=== PATIENT | female | born 1990 | race Caucasian/White ===

== ENCOUNTER 2017-11-08 18:34 | Emergency (ER) | payer OTHER ==
[~2017-11-08] VITALS: Ht 157.5 cm; Wt 100.0 kg
[~2017-11-08 18:34] MED LIST: ACET325 PO; CLON1 PO; DEPO150I IM; FLUP10 PO; IBUP800; LORA-474 PO
[2017-11-08 18:38] VITALS: BP 157/102; PULSE 117; RESP 18; TEMP 97.9; O2SAT 98
--- NOTE | 2017-11-08 19:28 | PD ---
HPI Chief Complaint: Allergic/Adverse Reaction Time Seen by Provider: 18:55 Travel History International Travel<30 days: No Contact w/Intl Traveler<30days: No Traveled to known affect area: No History of Present Illness HPI 27-year-old female that presents to the ED for evaluation of possible a reaction. Per patient she's been having "shakes", tremors and sensation of not feeling right since starting metronidazole on Thursday. Per patient she went to see her SENIOR CONSTRUCTION ESTIMATOR who prescribe her metronidazole for a vaginal disease. Per patient she's not sure what she was diagnosed with. She does have a history of schizophrenia and takes Depakote and she wasn't sure if the Depakote might be causing it as well. Per patient another one of her medications has been changed and switched to a lower dose at she denies any other issues with it. She denies any chest pain or shortness of breath. No headache. She feels dizzy and somewhat lightheaded. Has no allergies to medication. No chest pain or shortness of breath. No urinary or bowel movement issues. Hasn't seen her psychiatrist. Denies any other medical issues. Hasn't taken anything for this. No new medication changes per patient. PFSH Past Medical History ADHD: Yes Bipolar Disorder: Yes Weight (Kg): 2 Anxiety: Yes Depression: Yes Cancer: No Cardiovascular Problems: No Diabetes: No Diminished Hearing: No Endocrine: No Genitourinary: No Immune Disorder: No Musculoskeletal: No Neurologic: No Psychiatric: Yes Reproductive: No Respiratory: No Immunizations Current: Yes Migraines: Yes Schizophrenia: Yes Seizures: Yes (NO DEFINITIVE DIAGNOSIS, PER PT.) Thyroid Disease: No Ulcer: No ?: Not LMP: OCT 2017 Menopausal: No : 0 Para: 0 Past Surgical History Appendectomy: No Section: Yes Cholecystectomy: No Gynecologic Surgery: Yes ( 10/05/12) Other Surgery: Yes Social History Alcohol Use: Yes (reports that she quit 03/02) Tobacco Use: Yes (used to smoke a pack a day, reportedly stopped on 03/02) Substance Use: Yes (QUIT WHEN FOUND OUT SHE WAS ) Allergies-Medications (Allergen,Severity, Reaction): Coded Allergies: No Known Allergies (Verified , 07/08/12) Reported Meds & Prescriptions Reported Meds & Active Scripts Active Reported Clonazepam 1 Mg Tab 1 Mg PO BID Metronidazole 500 Mg Tab 500 Mg PO BID Depakote DR (Divalproex Sodium) 125 Mg Tabdr 125 Mg PO BID Review of Systems Except as stated in HPI: all other systems reviewed are Neg Physical Exam Narrative GENERAL: SKIN: Warm and dry. HEAD: Atraumatic. Normocephalic. EYES: Pupils equal and round. No scleral icterus. No injection or drainage. ENT: No nasal bleeding or discharge. Mucous membranes pink and moist. Tongue is midline. No uvula deviation. NECK: Trachea midline. No JVD. CARDIOVASCULAR: Regular rate and rhythm. No murmurs, S3, S4. RESPIRATORY: No accessory muscle use. Clear to auscultation. Breath sounds equal bilaterally. GASTROINTESTINAL: Abdomen soft, non-tender, nondistended. Hepatic and splenic margins not palpable. MUSCULOSKELETAL: Extremities without clubbing, cyanosis, or edema. No obvious deformities. Full range of motion of the upper and lower extremities bilaterally. 2+ pulses bilaterally. NEUROLOGICAL: Awake and alert. No obvious cranial nerve deficits. Motor grossly within normal limits. Five out of 5 muscle strength in the arms and legs. Normal speech. PSYCHIATRIC: Appropriate mood and affect; insight and judgment normal. Data Data Last Documented VS Vital Signs Date Time Temp Pulse Resp B/P (MAP) Pulse Ox O2 Delivery O2 Flow Rate FiO2 11/08/17 18:38 97.9 117 18 157/102 (120) 98 Orders Orders Complete Blood Count With Diff (11/08/17 19:03) Basic Metabolic Panel (Bmp) (11/08/17 19:03) Magnesium (Mg) (11/08/17 19:03) Valproic Acid (Depakene) (11/08/17 19:03) Thyroid Stimulating Hormone (11/08/17 19:03) Iv Access Insert/Monitor (11/08/17 19:03) Ecg Monitoring (11/08/17 19:03) Drug Screen, Random Urine (11/08/17 19:03) Urinalysis - C+S If Indicated (11/08/17 19:03) Ed Discharge Order (11/08/17 20:23) Labs Laboratory Tests Test 11/08/17 19:20 White Blood Count 8.8 TH/MM3 Red Blood Count 4.73 MIL/MM3 Hemoglobin 13.5 GM/DL Hematocrit 39.5 % Mean Corpuscular Volume 83.6 FL Mean Corpuscular Hemoglobin 28.6 PG Mean Corpuscular Hemoglobin Concent 34.3 % Red Cell Distribution Width 13.0 % Platelet Count 226 TH/MM3 Mean Platelet Volume 9.2 FL Neutrophils (%) (Auto) 57.4 % Lymphocytes (%) (Auto) 36.6 % Monocytes (%) (Auto) 5.5 % Eosinophils (%) (Auto) 0.0 % Basophils (%) (Auto) 0.5 % Neutrophils # (Auto) 5.0 TH/MM3 Lymphocytes # (Auto) 3.2 TH/MM3 Monocytes # (Auto) 0.5 TH/MM3 Eosinophils # (Auto) 0.0 TH/MM3 Basophils # (Auto) 0.0 TH/MM3 CBC Comment DIFF FINAL Differential Comment Urine Color YELLOW Urine Turbidity CLEAR Urine pH 8.0 Urine Specific [place] 1.014 Urine Protein NEG mg/dL Urine Glucose (UA) NEG mg/dL Urine Ketones NEG mg/dL Urine Occult Blood NEG Urine Nitrite NEG Urine Bilirubin NEG Urine Urobilinogen LESS THAN 2.0 MG/DL Urine Leukocyte Esterase NEG Urine RBC 2 /hpf Urine WBC 1 /hpf Urine Squamous Epithelial Cells 2 /hpf Urine Mucus FEW /lpf Microscopic Urinalysis Comment CULT NOT INDICATED Blood Urea Nitrogen 6 MG/DL Creatinine 0.77 MG/DL Random Glucose 137 MG/DL Calcium Level 9.1 MG/DL Magnesium Level 2.0 MG/DL Sodium Level 139 MEQ/L Potassium Level 4.2 MEQ/L Chloride Level 104 MEQ/L Carbon Dioxide Level 29.8 MEQ/L Anion Gap 5 MEQ/L Estimat Glomerular Filtration Rate 91 ML/MIN Thyroid Stimulating Hormone 3rd Gen 3.110 uIU/ML Urine Opiates Screen NEG Urine Barbiturates Screen NEG Valproic Acid (Depakene) Level 55 MCG/ML Urine Amphetamines Screen NEG Urine Benzodiazepines Screen NEG Urine Cocaine Screen NEG Urine Cannabinoids Screen NEG [facility] Medical Decision Making Medical Screen Exam Complete: Yes Emergency Medical Condition: Yes Medical Record Reviewed: Yes Interpretation(s) CBC & BMP Diagram 11/08/17 19:20 Calcium Level 9.1, Magnesium Level 2.0 tox negative Differential Diagnosis allergic reaction versus depakote reaction versus metronidazole reaction versus dehydration versus syncope versus presyncope Narrative Course 27-year-old female that presents to the ED for evaluation of possible reaction. Patient was properly examined and was found to have signs and symptoms of unclear etiology and possibly another direction. Possible combination of metronidazole and Depakote reaction. Labs were essentially unremarkable. No sign of Depakote toxicity. Patient states that she feels better. I do not see any sign of acute disease at this time. Possible reaction to her medications. At this time does not appear to be anything acute. I do recommend that she follows up with her doctor for further eval. Patient herself here has been neurovascular intact and has no signs of acute disease. Follow with PCP. See ED worsening symptoms. My attending evaluated the patient and agrees with plan. Diagnosis Primary Impression: Medication reaction Qualified Codes: T88.7XXA - Unspecified adverse effect of drug or medicament, initial encounter Patient Instructions: General Instructions Additional Instructions: F/u with your doctor for further evaluation. Your blood work here look great and there is no sign your depakote level is high. No sign of infection at this time but finish metronidazole as your SENIOR CONSTRUCTION ESTIMATOR prescribed it. See ED if worst. Med/Other Pt SpecificInfo: No Change to Meds Disposition: 01 DISCHARGE HOME Condition: Stable Raymond Singletary Nov 08, 2017 19:28
[2017-11-08] MEDS ORDERED: DEPA125T PO (19:34)
[2017-11-08] MEDS ORDERED: METR1TAB76 PO (19:34)
[2017-11-08] MEDS ORDERED: CLON1TAB PO (19:34)
[2017-11-08 19:40] LABS: BASOPHIL % 0.5 % (0.0-2.0); HEMATOCRIT 39.5 % (35.0-46.0); HEMOGLOBIN 13.5 GM/DL (11.6-15.3); LYMPH % 36.6 % (9.0-44.0); LYMPHOCYTE # 3.2 TH/MM3 (1.0-4.8); MEAN CELL VOLUME 83.6 FL (80.0-100.0); MEAN CORPUSCULAR HEMOGLOBIN 28.6 PG (27.0-34.0); MEAN CORPUSCULAR HGB CONC 34.3 % (32.0-36.0); MEAN PLATELET VOLUME 9.2 FL (7.0-11.0); MONO % 5.5 % (0.0-8.0); MONOCYTE # 0.5 TH/MM3 (0-0.9); NEUT % 57.4 % (16.0-70.0); PLATELET COUNT 226 TH/MM3 (150-450); RED BLOOD COUNT 4.73 MIL/MM3 (4.00-5.30); WHITE BLOOD COUNT 8.8 TH/MM3 (4.0-11.0)
[2017-11-08 19:48] LABS: BILIRUBIN, URINE NEG (NEG); BLOOD, URINE NEG (NEG); GLUCOSE,URINE NEG (NEG); KETONE, URINE NEG (NEG); MUCUS URINE FEW /lpf (OCC); NITRITE,URINE NEG (NEG); SQUAMOUS EPITHELIAL CELL URINE 2 /hpf (0-5); URINE COLOR YELLOW (YELLW/STRAW); URINE LEUKOCYTE ESTERASE NEG (NEG)
[2017-11-08 20:15] LABS: BICARBONATE 29.8 MEQ/L (21.0-32.0); CALCIUM 9.1 MG/DL (8.5-10.1); CREATININE 0.77 MG/DL (0.50-1.00)
--- NOTE | 2017-11-08 20:26 | PD ---
Physical Exam Date Seen by Provider: Nov 08, 2017 Narrative Patient presents complaining of possible allergic reaction to medication. She describes muscular jerking. Data Data Last Documented VS Vital Signs Date Time Temp Pulse Resp B/P (MAP) Pulse Ox O2 Delivery O2 Flow Rate FiO2 11/08/17 18:38 97.9 117 18 157/102 (120) 98 Orders Orders Complete Blood Count With Diff (11/08/17 19:03) Basic Metabolic Panel (Bmp) (11/08/17 19:03) Magnesium (Mg) (11/08/17 19:03) Valproic Acid (Depakene) (11/08/17 19:03) Thyroid Stimulating Hormone (11/08/17 19:03) Iv Access Insert/Monitor (11/08/17 19:) Ecg Monitoring (11/08/17 19:) Drug Screen, Random Urine (11/08/17 19:03) Urinalysis - C+S If Indicated (11/08/17 19:03) Ed Discharge Order (11/08/17 20:23) Labs Laboratory Tests Test 11/08/17 19:20 White Blood Count 8.8 TH/MM3 Red Blood Count 4.73 MIL/MM3 Hemoglobin 13.5 GM/DL Hematocrit 39.5 % Mean Corpuscular Volume 83.6 FL Mean Corpuscular Hemoglobin 28.6 PG Mean Corpuscular Hemoglobin Concent 34.3 % Red Cell Distribution Width 13.0 % Platelet Count 226 TH/MM3 Mean Platelet Volume 9.2 FL Neutrophils (%) (Auto) 57.4 % Lymphocytes (%) (Auto) 36.6 % Monocytes (%) (Auto) 5.5 % Eosinophils (%) (Auto) 0.0 % Basophils (%) (Auto) 0.5 % Neutrophils # (Auto) 5.0 TH/MM3 Lymphocytes # (Auto) 3.2 TH/MM3 Monocytes # (Auto) 0.5 TH/MM3 Eosinophils # (Auto) 0.0 TH/MM3 Basophils # (Auto) 0.0 TH/MM3 CBC Comment DIFF FINAL Differential Comment Urine Color YELLOW Urine Turbidity CLEAR Urine pH 8.0 Urine Specific [place] 1.014 Urine Protein NEG mg/dL Urine Glucose (UA) NEG mg/dL Urine Ketones NEG mg/dL Urine Occult Blood NEG Urine Nitrite NEG Urine Bilirubin NEG Urine Urobilinogen LESS THAN 2.0 MG/DL Urine Leukocyte Esterase NEG Urine RBC 2 /hpf Urine WBC 1 /hpf Urine Squamous Epithelial Cells 2 /hpf Urine Mucus FEW /lpf Microscopic Urinalysis Comment CULT NOT INDICATED Blood Urea Nitrogen 6 MG/DL Creatinine 0.77 MG/DL Random Glucose 137 MG/DL Calcium Level 9.1 MG/DL Magnesium Level 2.0 MG/DL Sodium Level 139 MEQ/L Potassium Level 4.2 MEQ/L Chloride Level 104 MEQ/L Carbon Dioxide Level 29.8 MEQ/L Anion Gap 5 MEQ/L Estimat Glomerular Filtration Rate 91 ML/MIN Thyroid Stimulating Hormone 3rd Gen 3.110 uIU/ML Urine Opiates Screen NEG Urine Barbiturates Screen NEG Valproic Acid (Depakene) Level 55 MCG/ML Urine Amphetamines Screen NEG Urine Benzodiazepines Screen NEG Urine Cocaine Screen NEG Urine Cannabinoids Screen NEG MDM Supervised Visit with WILLIE: Yes Narrative Course I, Dr. Domínguez, have reviewed the advance practice practitioner's documentation and am in agreement, met with the patient face to face, made the diagnosis, and the medical decision making was done by me. *My assessment and Findings: Awake and alert and in no acute distress. No difficulty breathing. No skin rash. See Hilda Concepcion note for lab and radiology results, final diagnosis and disposition Marj Domínguez MD Nov 08, 2017 20:26
== END 2017-11-08 20:45 | disposition home or self-care (01) ==
LOC: NEPE 18:34
DX: G25.1 Drug-induced tremor (principal); R42 Dizziness and giddiness; T50.905A Adverse effect of unspecified drugs, medicaments and biological substances, initial encounter; F20.9 Schizophrenia, unspecified; F31.9 Bipolar disorder, unspecified; Z79.899 Other long term (current) drug therapy
CPT/HCPCS: 80048; 80164; 80307; 81001; 83735; 84443; 85025; 99283